=== PATIENT | female | born 1960 | race Hispanic/Latino ===

== ENCOUNTER 2023-06-04 10:50 | Day surgery (SDC) | payer OTHER ==
[~2023-06-04] VITALS: Ht 149.9 cm; Wt 66.0 kg
[2023-06-04] VITALS (13 sets, daily range): BP systolic 116–148; BP diastolic 55–69; PULSE 64–78; RESP 14–18
[~2023-06-04 10:50] MED LIST: ACYC200C24 PO; CITA10TA89 PO; DULA1.5P SQ; EMPA10TA PO; GABA-529 PO; LOSA50TA64 PO; METF-446 PO; MONT-39 PO; NAPR-1023 PO; OMEP40CA21 PO; ROPI5TAB24 PO
[2023-06-04] MEDS ORDERED: PROPOFOL 10 MG/ML 20ML VIAL IV ONE (12:33)
== END 2023-06-04 14:30 | disposition home or self-care (01) ==
LOC: DAH 10:50 → ENDO 10:50
PROVIDERS: ATTEND Internal Medicine
DX: R10.13 Epigastric pain (principal); R13.10 Dysphagia, unspecified; K29.50 Unspecified chronic gastritis without bleeding; I10 Essential (primary) hypertension; E13.9 Other specified diabetes mellitus without complications; Z98.49 Cataract extraction status, unspecified eye; Z90.710 Acquired absence of both cervix and uterus; Z90.89 Acquired absence of other organs; Z98.890 Other specified postprocedural states; Z86.010 Personal history of colon polyps; Z79.84 Long term (current) use of oral hypoglycemic drugs; Z79.01 Long term (current) use of anticoagulants; Z79.899 Other long term (current) drug therapy
CPT/HCPCS: 82948 ×2; 43239; J2704; A4620; A4215 ×2; A4223; A7002; A4222; A4221; A4663; A4216; J7030; A4606; J3490

== ENCOUNTER → 2023-06-23 | Outpatient (CLI) | payer OTHER | END | disposition home or self-care (01) | LOC: RAH 09:41 | PROVIDERS: ATTEND Internal Medicine Gastroenterology | DX: K44.9 Diaphragmatic hernia without obstruction or gangrene (principal); R12 Heartburn; R13.10 Dysphagia, unspecified | CPT/HCPCS: 74240 ==